=== PATIENT | female | born 1955 | race Caucasian/White ===

== ENCOUNTER 2021-01-15 17:13 | Emergency (ER) | payer MEDICARE, OTHER ==
[~2021-01-15] VITALS: Ht 165.1 cm; Wt 81.8 kg
[2021-01-15 18:00] LABS: BASOPHILS # (AUTO) 0.1 X10'3 (0-0.2); BASOPHILS % (AUTO) 0.6 % (0-1); EOSINOPHILS # (AUTO) 0.1 X10'3 (0-0.9); EOSINOPHILS % (AUTO) 1.4 % (0-6); HEMATOCRIT 39.7 % (35.0-45.0); LYMPHOCYTES # (AUTO) 1.6 X10'3 (1.1-4.8); LYMPHOCYTES % (AUTO) 20.3 % (21-51); MEAN CORPUSCULAR HEMOGLOBIN 27.5 PG (27.0-31.0); MEAN CORPUSCULAR HGB CONC 32.7 g/dL (33.0-36.5); MEAN CORPUSCULAR VOLUME 83.9 FL (78-98); MEAN PLATELET VOLUME 7.1 FL (7.4-10.4); MONOCYTES # (AUTO) 0.5 X10'3 (0-0.9); NEUTROPHILS # (AUTO) 5.8 X10'3 (1.8-7.7); NEUTROPHILS % (AUTO) 71.7 % (42-75); PLATELET COUNT 271 X10'3 (140-440); RED BLOOD COUNT 4.74 X10'6 (4.20-5.60); RED CELL DISTRIBUTION WIDTH 17.8 % (11.5-14.5); WHITE BLOOD COUNT 8.1 X10'3 (4.5-11.0)
[2021-01-15 18:17] LABS: ALANINE AMINOTRANSFERASE 29 U/L (12-78); ALBUMIN 3.5 G/DL (3.4-5.0); ALBUMIN/GLOBULIN RATIO 0.8 (1.1-1.5); ALKALINE PHOSPHATASE 105 IU/L (46-116); ANION GAP 6 (8-16); ASPARTATE AMINO TRANSFERASE 25 U/L (10-37); BILIRUBIN,TOTAL 0.2 MG/DL (0.1-1.0); BLOOD UREA NITROGEN 17 MG/DL (7-18); BUN/CREATININE RATIO 19.3 (6.6-38.0); CALCIUM 9.2 MG/DL (8.5-10.1); CHLORIDE 102 MMOL/L (99-107); CREATININE 0.88 MG/DL (0.40-0.90); POTASSIUM 3.8 MMOL/L (3.5-5.1); SODIUM 141 MMOL/L (135-145); TOTAL CARBON DIOXIDE 33.4 MMOL/L (24-32); TOTAL PROTEIN 7.9 G/DL (6.4-8.2); eGFR 64 ML/MIN
[2021-01-15 19:03] LABS: GLUCOSE 160 MG/DL (70-104)
--- NOTE | 2021-01-15 19:30 | NUR ---
PT'S SON CALLED, IS CONCERNED THAT PT IS CONFUSED FROM HER BASELINE
[2021-01-15 20:02] VITALS: BP 124/85
--- NOTE | 2021-01-15 23:20 | NUR ---
GAIT TESTED PT . AMBULATED DOWN MENDOZA TO BATHROOM DECREASE IN O2 SATURATION TO 92 % FROM 96 % NO INCREASE WORK OF BREATHING NOTED OR CONFUSION NOTIFIED DR ANDREWS OR RESULTS
[2021-01-15 23:32] LABS: ETHANOL < 0.010 GM/DL (0.0-0.010)
[2021-01-15 23:39] LABS: URINE AMPHETAMINE SCREEN NEGATIVE (Neg); URINE BARBITUATE SCREEN NEGATIVE (Neg); URINE BENZODIAZEPINES SCREEN POSITIVE (Neg); URINE CANNABINOID SCREEN NEGATIVE (Neg); URINE COCAINE SCREEN NEGATIVE (Neg); URINE METHADONE SCREEN NEGATIVE (Neg); URINE OPIATE SCREEN NEGATIVE (Neg); URINE PHENCYCLIDINE SCREEN NEGATIVE (Neg)
[2021-01-15 23:49] LABS: CLARITY,URINE CLEAR (Clear); COLOR,URINE YELLOW (Yellow); GLUCOSE, URINE NEGATIVE (Neg); KETONES,URINE NEGATIVE (Neg); LEUKOCYTE ESTERASE ,URINE NEGATIVE (Neg); NITRITES, URINE NEGATIVE (Neg); OCCULT BLOOD,URINE NEGATIVE (Neg); PROTEIN,URINE NEGATIVE (Neg); UROBILINOGEN,URINE 0.2 E.U/dL (0.2-1.0)
[2021-01-16 00:04] LABS: UA COLLECTION TYPE CLN CATCH MIDSTREAM
== END 2021-01-16 00:45 | disposition home or self-care (01) ==
LOC: ER 17:15
DX: R06.02 Shortness of breath (principal); R53.1 Weakness; R26.89 Other abnormalities of gait and mobility; Z88.1 Allergy status to other antibiotic agents; Z87.01 Personal history of pneumonia (recurrent)
CPT/HCPCS: 36415; 71046; 80053; 80305; 80320; 81003; 83605; 83880; 85025; 87040; 93005; 99285

== ENCOUNTER 2024-11-22 06:18 | Day surgery (SDC) | payer MEDICARE, OTHER ==
[~2024-11-22] VITALS: Ht 160 cm; Wt 53.0 kg
[~2024-11-22 06:18] MED LIST: ERGO400C PO; FLUO-167 PO; LEVO88TA7 PO; MECO10005 PO; MULT-1085 PO; ONDA-243 PO; OXYB5TAB21 PO; TRAM50TA2 PO; TRAZ150T78 PO
[2024-11-22 06:58] VITALS: BP 105/40; PULSE 62; RESP 19
[2024-11-22] MEDS ORDERED: acetaminophen 1,000mg/100ml IV 100 ML IV PRN (07:20)
[2024-11-22] MEDS ORDERED: fentaNYL/PF 50MCG/1 ML 2ML syringe IV PRN ×2 (07:20)
[2024-11-22] MEDS ORDERED: proCHLORperazine 10 MG/2 ml inj IV PRN (07:20)
[2024-11-22] MEDS ORDERED: HYDROmorphone/PF 0.2 MG/ML SYRINGE IV PRN ×2 (07:20)
[2024-11-22] MEDS ORDERED: ondansetron/PF 4mg/2ml inj IV PRN (07:20)
[2024-11-22] MEDS ORDERED: meperidine/PF 25mg/ml syringe IV PRN (07:20)
[2024-11-22] MEDS ORDERED: ringers solution, lacted 1,000 ML IV SCH (07:20)
[2024-11-22] MEDS ORDERED: ondansetron/PF 4mg/2ml inj ONE (07:58)
[2024-11-22] MEDS ORDERED: propofol inj 20 ML IV ONE (07:58)
[2024-11-22 08:08] VITALS: BP 89/50; PULSE 56; RESP 14; O2SAT 100
[2024-11-22 08:13] VITALS: BP 100/54; PULSE 72; RESP 18; O2SAT 96
[2024-11-22 08:20] VITALS: BP 100/54; PULSE 62; RESP 15; O2SAT 95
[2024-11-22 08:30] VITALS: BP 98/53; PULSE 61; RESP 16; O2SAT 96
[2024-11-22 08:44] VITALS: BP 108/48; PULSE 61; RESP 17; O2SAT 94
--- NOTE | 2024-11-22 10:17 | OPERATIVE REPORT ---
Operative Report Providers to CC CC: VINICIO ANDERSON MD ~ Date of Procedure: November 22, 2024 Pre-Operative Diagnosis: Hiatal hernia Post-Operative Diagnosis Type III paraesophageal hernia LA grade A esophagitis Retained food in the gastric body and antrum Antral gastritis Procedure Performed Esophagogastroduodenoscopy with biopsy Surgeon: Vinicio Anderson MD FACS [employer] None Anesthesiologist: Ned Traoer Type of Anesthesia: Other (Monitored anesthesia care) Findings: Large 8 cm paraesophageal hernia; type III Grade A esophagitis Antral gastritis Complications None Prosthetics\Implants used: None Estimated Blood Loss: Minimal Specimen Removed: GE junction biopsy Gastric antrum biopsy Description of Procedure: Indication: Symptomatic hiatal hernia Consent: The patient has been informed of: #1. The nature of the procedure #2. The risk, complications, and expected benefits of the procedure. #3. Any alternatives to the procedure and the risks/benefits. Preparation: EKG pulse, blood pressure and oxygen saturation monitoring Anesthesia/sedation: As per hospital record Procedure: The patient was placed in the left lateral decubitus position. The endoscope was introduced through the mouth, advanced through the pharynx, and under direct endoscopic visualization the esophagus was intubated. The scope was passed through the esophagus with identification of the EG junction and into the stomach. The scope was then passed into the antral area with visualization of the pylorus. The pylorus was cannulated and the duodenal bulb and second portion of the duodenum were visualized. The scope was brought back into the stomach where the cardia and fundus were visualized in a retrograde manner. Color, texture, mucosa and anatomy of the esophagus, stomach and duodenum were c arefully examined with the scope on insertion and withdrawal. The patient tolerated the procedure well and there were no complications. After completion of the examination, patient was transferred to the recovery room. Findings: Oropharynx: Normal Esophagus: Normal EG junction: LA grade A esophagitis; 30 cm from incisors. Biopsies obtained Cardia: Normal in appearance; herniated above the hiatus. Hiatal narrowing at 38 cm Fundus: Normal; portion above the hiatus Body: Gastritis with retained food Antrum: Gastritis with retained food. Biopsies obtained Pylorus: Normal Duodenal bulb: Normal Second portion: Normal IMPRESSION: -large 8 cm type III paraesophageal hernia -mild esophagitis -retained food within the gastric body and antrum -antral gastritis PLAN: -await biopsy results -await gastric emptying study results -follow up with Vinicio Anderson MD FACS Counts repoted as correct: Yes VINICIO ANDERSON MD November 22, 2024 10:17
== END 2024-11-22 08:54 | disposition home or self-care (01) ==
LOC: GI LAB 06:18
PROVIDERS: ATTEND Surgery
DX: K44.9 Diaphragmatic hernia without obstruction or gangrene (principal); K20.90 Esophagitis, unspecified without bleeding; K29.50 Unspecified chronic gastritis without bleeding; F32.A Depression, unspecified; Z98.890 Other specified postprocedural states; Z88.8 Allergy status to other drugs, medicaments and biological substances; Z90.710 Acquired absence of both cervix and uterus
CPT/HCPCS: 43239; J0131; J0780; J1171; J2175; J2405; J2704; J3010; J7030; J7120; Z7512